=== PATIENT | female | born 1980 ===

== ENCOUNTER 2025-03-19 09:54 | Outpatient (AMB) | payer OTHER, SELFPAY ==
--- NOTE | 2025-03-19 09:56 | MHC.PC.OV ---
Vital Signs 03/19/25 09:57 Height 5 ft 2.5 in Weight 196 lb 8 oz BMI 35.4 BP 114/80 Blood Pressure Location Rt brachial Position Sitting Respiration 16 Pulse 92 Pulse Source Pulse Oximeter Temp 96.9 F Temp Source Temporal Artery Scan Pulse Oximetry (%) 99 Oxygen Delivery Method Room Air Intake Visit Reasons: Re-establish care - see comments Bushel Worker Required: No Accompanied by: Self / Same As Patient Allergies doxycycline Allergy (Intermediate, Verified 03/19/25 10:02) Rash erythromycin base Allergy (Intermediate, Verified 03/19/25 10:02) rash, scratching of insides moxifloxacin Allergy (Intermediate, Verified 03/19/25 10:02) turned whites of eyes red phenobarbital Allergy (Intermediate, Verified 03/19/25 10:02) Rash phenytoin (From Dilantin) Allergy (Intermediate, Verified 03/19/25 10:02) Rash COVID-19 (SARS-CoV-2) vaccine, carol Adverse Reaction (Mild, Verified 03/19/25 10:02) minor throat swelling Medication List - Last Reconciled 03/19/25 by Abimbola Alicea MD ascorbate calcium (vitamin C) 500 mg PO DAILY atogepant (Qulipta) 60 mg PO DAILY cholecalciferol (vitamin D3) 25 mcg PO DAILY dextroamphetamine-amphetamine 10 mg ER 2 caps PO QAM epinephrine 0.3 mg IM PRN estradiol 0.01%(0.1mg/gram) vaginal estradiol 1 patch transdermal 2XW levocetirizine (Xyzal) 5 mg PO DAILY magnesium 200 mg PO DAILY mecobalamin (vitamin B12) 1,000 mcg PO DAILY multivitamin 1 tab PO DAILY naproxen 500 mg PO BID PRN Saccharomyces boulardii (Daily Probiotic (S. boulardii)) 250 mg PO BID ubrogepant (Ubrelvy) mg PO Tobacco use date assessed: 03/19/25 Dental Screening Dental Screen Date: 03/19/25 Did you have a dental visit in the last 12 months?: Yes Did you have a dental problem in the last 6 months where you did not have access to dental care?: No Was dental information given to patient?: Patient has dentist HPI HPI Comments History of Present Illness Details The patient is a 44 year old individual presenting to re-establish care. Migraine: The patient receives care for migraines at the [facility] and reports that the current strategy of daily Qulipta and PRN Ubrelvy is working well, making the migraines much more manageable. The patient has been taking fewer NSAIDs since starting this regimen. The patient previously underwent about two months of physical therapy, which provided tips on stretches for tension and a technique for managing a first rib subluxation that contributes to neck pain. Attention-Deficit Hyperactivity Disorder (ADHD): The patient is treated for ADHD with a stimulant medication. The patient's last urine drug screen, part of the protocol for controlled substance prescriptions, was in May 2024. 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 Through the [facility], the patient was referred to a physical therapy practice with multiple clinicians familiar with [facility]. Health Maintenance: The patient has undergone allergy evaluation with Dr. France at [facility]. Recent blood tests are presumed normal, and a 24-hour urine collection is pending. The patient's last mammogram in July 2024 showed fibroglandular tissue with no new or concerning findings. 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 The IUD is used for hormone regulation. The patient has an unused Cologuard kit from a previous order for colon cancer screening. Plans to complete colon cancer screening next year. [facility] Medical History (Updated 03/20/25 @ 15:10 by Abimbola Alicea MD) Migraine, unspecified, not intractable, without status migrainosus Luis-Danlos syndrome ADHD Social History Housing: House Patient Tobacco Use Status: Never used Tobacco e-Cigarette/Vaping Use: Never Used Current occupational status: employed Current occupation: Outside Salesperson/Research Regulatory Questionnaire PHQ-9 Over the last 2 weeks, how often have you been bothered by any of the following problems? 1. Little interest or pleasure in doing things: not at all 2. Feeling down, depressed, or hopeless: not at all 3. Trouble falling or staying asleep, or sleeping too much: not at all 4. Feeling tired or having little energy: not at all 5. Poor appetite or overeating: not at all 6. Feeling bad about yourself - or that you are a failure or have let yourself or your family down: not at all 7. Trouble concentrating on things, such as reading the newspaper or watching television: not at all 8. Moving or speaking so slowly that other people could have noticed. Or the opposite - being so fidgety or restless that you have been moving around a lot more than usual: not at all 9. Thoughts that you would be better off or of hurting yourself in some way: not at all Total score: 0 Depression Screening Interpretation: Negative Depression Screening Done: Yes 53709 - PHQ-9 Billing: Yes Source: Developed by Drs. Vince Wolf, Myriam Nobles, Moe Sanchez and colleagues, with an educational burt from [employer]. AUDIT C Alcohol Use Questionnaire (AUDIT-C) 1. How often do you have a drink containing alcohol?: 2-3 times a week Total Score: 3 Review of Systems Narrative Review of Systems - Neurological: per hpi - Musculoskeletal: Reports intermittent neck pain and tension, Physical exam (Primary Care) Vital Signs: Last Vital Signs Temp 96.9 F 03/19/25 09:57 Pulse 92 03/19/25 09:57 Resp 16 03/19/25 09:57 BP 114/80 03/19/25 09:57 Pulse Ox 99 03/19/25 09:57 Oxygen Delivery Method Room Air 03/19/25 09:57 BMI result Body Mass Index 35.4 Tobacco/Smoking Status: Tobacco use Status Tobacco use date assessed 03/19/25 03/19/25 10:09 Patient Tobacco Use Status Never used Tobacco 03/19/25 10:09 e-Cigarette/Vaping Use Never Used 03/19/25 10:09 PHQ-9: PHQ-9 Score PHQ-9: Total score 0 03/20/25 11:27 Depression Screening Interpretation: Negative Narrative Physical Exam - Respiratory: Lungs clear to auscultation bilaterally. - Cardiovascular: A soft murmur is noted; normal heart sounds otherwise. - Abdomen: Bowel sounds are normal. Abdomen is non-tender. Coding Level of Care Code Est Pt Level 4 (49228) Complex visit Add On G2211 Diagnoses Attention deficit hyperactivity disorder (ADHD), unspecified ADHD type F90.9 Attention deficit-hyperactivity disorder type: unspecified Luis-Danlos syndrome Q79.60 Migraine, unspecified, not intractable, without status migrainosus G43.909 Additional Codes PHQ-9 - 48936 - PHQ-9 Billing: Yes ([id number]) Time Spent (min) 34 Comment chart review, document prep, visit time Assessment & Plan Assessment & Plan (1) ADHD: Code(s): F90.9 - Attention-deficit hyperactivity disorder, unspecified type Category: Medical Qualifiers: Attention deficit-hyperactivity disorder type: unspecified Qualified Code(s): F90.9 - Attention-deficit hyperactivity disorder, unspecified type (2) Luis-Danlos syndrome: Code(s): Q79.60 - Luis-Danlos syndrome, unspecified Category: Medical (3) Migraine, unspecified, not intractable, without status migrainosus: Code(s): G43.909 - Migraine, unspecified, not intractable, without status migrainosus Category: Medical Plan Assessment and Plan 1. Migraine (G43.909) - The condition is stable and well-managed on the current regimen of daily Qulipta and as-needed Ubrelvy. - The patient has found physical therapy techniques helpful for associated neck tension. - Plan is to continue current medications and strategies. 2. Attention-Deficit Hyperactivity Disorder (ADHD) (F90.9) - The patient is on chronic stimulant therapy. - A controlled substance agreement was signed. - The patient was counseled on the refill process. - repeat tox screen at physical - The plan is to continue current medication and monitoring. 3. 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 - The patient has access to physical therapy familiar with [facility], which is endorsed for any future needs. - No acute management is required. 4. Health Maintenance (Z00.00) - Follow up in June 2025 for physical Plan - Continue Qulipta daily and Ubrelvy PRN for migraine management. - Signed controlled substance agreement for ADHD medication. - The patient is advised to schedule a gynecological exam, as the last Pap smear was in 2021. Discussion Notes We reviewed the patient's chronic conditions, including migraines and ADHD. Regarding the controlled substance prescription for ADHD, we completed a controlled substance agreement today. Patient Instructions - Continue taking your migraine medications as prescribed: Qulipta daily and Ubrelvy as needed. - For your ADHD medication refills, please call our office three days before you run out. - Please schedule an appointment with a lab engineer for a check-up and to discuss your IUD.
[2025-03-19 09:57] VITALS: BP 114/80; PULSE 92; RESP 16; TEMP 36.1; O2SAT 99; BMI 35.4
== END 2025-03-19 10:48 | disposition home or self-care (01) ==
LOC: HO.HMCHD 09:54
PROVIDERS: PCP Internal Medicine; Visit Provider Internal Medicine
DX: F90.9 Attention-deficit hyperactivity disorder, unspecified type (principal); Q79.60 Ehlers-Danlos syndrome, unspecified; G43.909 Migraine, unspecified, not intractable, without status migrainosus